=== PATIENT | female | born 1965 | race Two or more races ===

== ENCOUNTER 2023-07-03 10:10 | Emergency (ER) | payer MEDICAID, OTHER ==
[~2023-07-03] VITALS: Ht 157.5 cm; Wt 88.5 kg
[2023-07-03] MEDS ORDERED: IOHEXOL 350 MG/ML 100ML IJ ONE (10:21)
[2023-07-03] MEDS: TENECTEPLASE 50mg/10ml KIT IV ONE (11:25)
[2023-07-03 11:28] VITALS: PULSE 86; RESP 16; O2SAT 95
[2023-07-03 11:31] LABS: Partial Thromboplastin Time 21.6 SEC (24.5-34.5); Prothrombin Time 10.5 sec (9.3-11.8)
[2023-07-03 11:38] LABS: Alanine Aminotransferase 27 U/L (7-40); Albumin 4.2 g/dL (3.2-4.8); Alkaline Phosphatase 68 U/L (46-116); Anion Gap 6 (5-15); Aspartate Aminotransferase 24 U/L (13-40); BUN/Creatinine Ratio 14.3 (10.0-20.0); Bilirubin, Total 0.5 mg/dL (0.2-1.0); Blood Urea Nitrogen 22 mg/dL (9-23); Calcium 9.2 mg/dL (8.7-10.4); Carbon Dioxide 30 mmol/L (20-30); Chloride 103 mmol/L (98-107); Glucose 127 mg/dL (74-106); Potassium 4.4 mmol/L (3.5-5.1); Sodium 139 mmol/L (136-145); Total Protein 6.5 g/dL (5.7-8.2)
[2023-07-03 12:03] VITALS: BP 156/87; PULSE 83; RESP 14; TEMP 98.5; O2SAT 95
== END 2023-07-03 12:16 | disposition home or self-care (01) ==
LOC: ER 10:10
DX: I63.9 Cerebral infarction, unspecified (principal); R07.89 Other chest pain; Z86.73 Personal history of transient ischemic attack (TIA), and cerebral infarction without residual deficits
CPT/HCPCS: 36415; 70450; 71045; 80053; 83735; 84484; 85610; 85730; 93005; 99285; J3101